=== PATIENT | male | born 1990 | race Caucasian/White ===

== ENCOUNTER 2016-07-02 02:32 | Emergency (ER) | payer OTHER ==
[~2016-07-02] VITALS: Ht 193 cm; Wt 100.4 kg
[~2016-07-02 02:32] MED LIST: HYDR-3129 PO; LACT1CAP6 PO; MEDR4PAK3 PO; METH750T2 PO; VITA100017 PO
[2016-07-02 02:40] VITALS: BP 136/74; PULSE 92; RESP 24; TEMP 99; O2SAT 99
[2016-07-02] MEDS ORDERED: AZIT250T3 PO (02:44)
[2016-07-02 03:10] VITALS: BP 140/64; PULSE 88; RESP 22; TEMP 98.5; O2SAT 100
[2016-07-02] MEDS ORDERED: AUGM875T PO (04:02)
--- NOTE | 2016-07-02 04:07 | PD ---
HPI Chief Complaint: Cold / Flu Symptoms Time Seen by Provider: 03:47 Travel History International Travel<30 days: No Contact w/Intl Traveler<30days: No Traveled to known affect area: No History of Present Illness HPI The patient is a 26-year-old male that has had a cough for 10 days. He was put on Z-Boone from an urgent care [facility] 3 days ago and has no relief. In the last 24 hours she developed sinus pain in the bilateral maxillary areas. He denies any fever. He does have a yellow nasal discharge. He does not smoke. PFSH Past Medical History Medical History: Denies Significant Hx Cancer: No Cardiovascular Problems: No Diabetes: No Diminished Hearing: No Endocrine: No Genitourinary: No Hepatitis: No Hiatal Hernia: No Immune Disorder: No Musculoskeletal: Yes (BACK) Neurologic: Yes (TINGLING RIGHT FOOT NUMBNESS OVER RIGHT GREAT TOE) Psychiatric: No Respiratory: No Immunizations Current: Yes Thyroid Disease: No Tetanus Vaccination: Unknown Influenza Vaccination: No Past Surgical History AICD: No Body Medical Devices: NONE PER PT Joint Replacement: No Oral Surgery: Yes (WISDOM TEETH EXTRACTED, T&A) Pacemaker: No Other Surgery: Yes (vasectomy, L5 S1 laminectomy) Social History Alcohol Use: Yes (socially) Tobacco Use: No Substance Use: No Allergies-Medications (Allergen,Severity, Reaction): Coded Allergies: Ceclor (Verified Allergy, Unknown, 07/02/16) HIVES Reported Meds & Prescriptions Reported Meds & Active Scripts Active Reported Azithromycin 250 Mg Tab 250 Mg PO DIRECTED Take 2 tabs (500 mg) on day 1 then 1 tab daily x 4 days. Review of Systems Except as stated in HPI: all other systems reviewed are Neg Physical Exam Narrative GENERAL: Well-nourished, well-developed patient in no respiratory distress. His vital signs are normal. SKIN: Warm and dry. No skin rash is seen. HEAD: Normocephalic. EYES: No scleral icterus. No injection or drainage. NECK: Supple, trachea midline. No JVD or lymphadenopathy. There is no meningismus. CARDIOVASCULAR: Regular rate and rhythm without murmurs, gallops, or rubs. RESPIRATORY: Breath sounds equal bilaterally. No accessory muscle use. GASTROINTESTINAL: Abdomen soft, non-tender, nondistended. MUSCULOSKELETAL: No cyanosis, or edema. BACK: Nontender without obvious deformity. No CVA tenderness. ENT: There is tenderness over both maxillary sinuses. The throat is clear without exudate, abscess or erythema. Data Data Last Documented VS Vital Signs Date Time Temp Pulse Resp B/P Pulse Ox O2 Delivery O2 Flow Rate FiO2 07/02/16 03:10 22 100 Room Air 07/02/16 03:10 98.5 88 140/64 MDM Medical Decision Making Medical Screen Exam Complete: Yes Emergency Medical Condition: Yes Medical Record Reviewed: Yes Differential Diagnosis Viral rhinosinusitis, maxillary sinusitis, viral syndrome Narrative Course The patient likely has a viral syndrome. He may be getting a maxillary sinusitis and Augmentin may not be the best drug for him. Plan: The patient be given Augmentin 875 mg twice daily for 10 days. 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 He should follow-up with a primary care physician. Diagnosis Primary Impression: Sinusitis, acute, maxillary Med/Other Pt SpecificInfo: Prescription(s) given Scripts Amoxicillin-Clavulanate (Augmentin)875-125 mg Vtv054 Mg PO BID #20 TAB Ref 0 not for use in CrCl <30 ml/min. Prov:Mukund Gonzalez MD 07/02/16 Disposition: 01 DISCHARGE HOME Condition: Stable Mukund Gonzalez MD Jul 02, 2016 04:07
[2016-07-02] MEDS ORDERED: AMOXICILLIN/CLAVULANATE K 875 MG TAB PO ONE (04:15)
== END 2016-07-02 04:32 | disposition home or self-care (01) ==
LOC: PHED 02:32
DX: J01.00 Acute maxillary sinusitis, unspecified (principal)
CPT/HCPCS: 99283